=== PATIENT | female | born 1980 | race Hispanic/Latino ===

== ENCOUNTER 2018-05-21 09:21 | Emergency (ER) | payer SELFPAY ==
[~2018-05-21] VITALS: Ht 160 cm; Wt 111.1 kg
--- NOTE | 2018-05-21 10:16 | Diagnostic Imaging Report ---
EXAM: CHEST 2 VIEWS, PA and lateral DATE: 05/21/2018Time stamp on exam: 9:56 AM INDICATION: Cough COMPARISON: None FINDINGS: LINES/TUBES: None LUNGS: Ill-defined right lower lobe streaky opacity. PLEURA: No effusions or pneumothorax. HEART AND MEDIASTINUM: Normal size and contour. BONES AND SOFT TISSUES: No acute findings. IMPRESSION: Right lower lobe infiltrate. Signed by: Dr. Crow Urban DO on 05/21/2018 10:13 AM
--- NOTE | 2018-05-21 10:29 | NUR ---
PAULA MCALLISTER IN TO NEELAM JOHN.
[2018-05-21 10:56] LABS: STREPTOCOCCUS GRP A ANTIGEN POSITIVE (NEGATIVE)
[2018-05-21 11:01] LABS: INFLUENZAE A&B ANTIGEN (RAPID) NEGATIVE (NEGATIVE)
[2018-05-21 12:43] VITALS: BP 143/74
[2018-05-21] MEDS ORDERED: ONDANSETRON HCL INJ 2MG/ML 2ML 2 MG/ML VIAL IV STA (17:34)
[2018-05-21] MEDS ORDERED: HYDROMORPHONE 2MG/ML 2 MG/ML ML IV ONE (17:45)
== END 2018-05-21 12:50 | disposition home or self-care (01) ==
LOC: ER 09:21
DX: R50.9 Fever, unspecified (principal); R05 Cough; H92.03 Otalgia, bilateral; J15.9 Unspecified bacterial pneumonia; J02.0 Streptococcal pharyngitis; J01.30 Acute sphenoidal sinusitis, unspecified
CPT/HCPCS: 71046; 83518; 87400; 99283; J1170; J2405